=== PATIENT | female | born 1985 | race American Indian/Alaskan Native ===

== ENCOUNTER 2016-10-31 19:58 | Emergency (ER) | payer MEDICAID ==
[2016-10-31 20:28] VITALS: RESP 18; TEMP 99.2
[2016-10-31] MEDS ORDERED: Sodium Chloride 0.9% 1,000 ML IV ONE ×2 (20:37→20:38)
[2016-10-31] MEDS ORDERED: Sodium Chloride 0.9% 1,000 ML ONE ×2 (20:39→22:20)
[2016-10-31 20:51] LABS: BASO % 0.2 % (0.0-2.0); EOS % 0.1 % (0.0-4.0); HEMATOCRIT 41.7 % (34.0-47.0); LYMPH # 0.6 K/uL (1.0-4.3); LYMPH % 4.8 % (20.0-40.0); MEAN CELL VOLUME 86.6 fL (81.0-99.0); MEAN CORPUSCULAR HEMOGLOBIN 28.2 pg (27.0-31.0); MEAN CORPUSCULAR HGB CONC 32.6 g/dL (33.0-37.0); MEAN PLATELET VOLUME 10.3 fL (7.2-11.7); MONO # 0.5 K/uL (0.0-0.8); MONO % 3.7 % (0.0-10.0); PLATELET COUNT 237 K/uL (130-400); RED CELL DISTRIBUTION WIDTH 14.3 % (11.5-14.5); WHITE BLOOD COUNT 12.2 K/uL (4.8-10.8)
[2016-10-31 20:57] LABS: CHLORIDE 100 mmol/L (98-107); SODIUM 137 mmol/L (132-148)
[2016-10-31 21:00] LABS: ALB/GLOB RATIO 1.4 (1.0-2.1); ALKALINE PHOSPHATASE 66 U/L (38-126); AST/SGOT 18 U/L (14-36); BILIRUBIN,TOTAL 1.4 mg/dL (0.2-1.3); BLOOD UREA NITROGEN 12 mg/dL (7-17); CARBON DIOXIDE 24 mmol/L (22-30); GFR AFRICAN-AMERICAN > 60; TOTAL PROTEIN 7.9 g/dL (6.3-8.3)
[2016-10-31 21:01] LABS: ALT/SGPT 18 U/L (9-52); CALCIUM 9.1 mg/dl (8.6-10.4); GLUCOSE,RANDOM 94 mg/dL (65-105)
[2016-10-31 21:37] LABS: NEUTROPHIL 91 % (50-75); TOTAL CELLS COUNTED 100
[2016-10-31 22:11] LABS: RBC URINE 10 /hpf (0-3); URINE BACTERIA RARE (<OCC); URINE BILIRUBIN NEGATIVE (NEGATIVE); URINE BLOOD 1+ (NEGATIVE); URINE COLOR Yellow (YELLOW); URINE GLUCOSE (UA) NORMAL (Normal); URINE KETONE TRACE mg/dL (NEGATIVE); URINE LEUKOCYTE ESTERASE NEG Leu/uL (Negative); URINE PROTEIN NEGATIVE (NEGATIVE); URINE UROBILINOGEN NORMAL mg/dL (0.2-1.0); WBC URINE 2 /hpf (0-5)
--- NOTE | 2016-10-31 22:46 | C.PDOC ---
History Of Present Illness 31 y/o female presents to ED with complaints of nausea, vomiting, and diarrhea since having avalos, eggs and grits for breakfast today. Denies fever, chills, chest pain, SOB, or other complaints. Time Seen by Provider: 10/31/16 20:34 Chief Complaint (Nursing): Abdominal Pain History Per: Patient History/Exam Limitations: no limitations Onset/Duration Of Symptoms: Hrs Current Symptoms Are (Timing): Still Present Associated Symptoms: Nausea, Vomiting, Diarrhea. denies: Fever, Chills, Urinary Symptoms Last Bowel Movement: Today Recent travel outside of the [place]: No Abnormal Vaginal Bleeding: No Past Medical History Reviewed: Historical Data, Nursing Documentation, Vital Signs Vital Signs: Last Vital Signs Temp 99.2 F 10/31/16 20:25 Pulse 88 10/31/16 22:55 Resp 18 10/31/16 22:55 BP 128/82 10/31/16 22:55 Pulse Ox 99 10/31/16 22:55 Surgical History: Appendectomy, Family History: States: Unknown Family Hx - Social History Hx Tobacco Use: No Hx Alcohol Use: Yes Hx Substance Use: No - Immunization History Hx Tetanus Toxoid Vaccination: No Hx Influenza Vaccination: No Hx Pneumococcal Vaccination: No Review Of Systems Except As Marked, All Systems Reviewed And Found Negative. Constitutional: Negative for: Fever, Chills Cardiovascular: Negative for: Chest Pain Respiratory: Negative for: Cough, Shortness of Breath Gastrointestinal: Positive for: Nausea, Vomiting, Diarrhea Genitourinary: Negative for: Dysuria, Frequency, Vaginal Bleeding Skin: Negative for: Rash Physical Exam - Physical Exam Appears: Non-toxic, No Acute Distress Skin: Warm, Dry Head: Atraumatic, Normacephalic Oral Mucosa: Moist Chest: Symmetrical Cardiovascular: Rhythm Regular Respiratory: Normal Breath Sounds, No Rales, No Rhonchi, No Wheezing Gastrointestinal/Abdominal: Bowel Sounds (hyperactive bowel sounds), Soft, No Tenderness, No Distention, No Guarding, No Rebound Back: Normal Inspection, No CVA Tenderness Extremity: Normal ROM, Capillary Refill (< 2 sec. ) Neurological/Psych: Oriented x3, Normal Speech, Normal Cognition ED Course And Treatment - Laboratory Results Result Diagrams: 10/31/16 20:43 10/31/16 20:43 Lab Interpretation: Abnormal (mild leukocytosis) Urine POC: Negative (UA neg.) O2 Sat by Pulse Oximetry: 98 (RA) Pulse Ox Interpretation: Normal - Radiology CXR: Interpreted by Me CXR Interpretation: Yes: No Acute Disease - Other Rad abd x 2 X-Ray: Interpreted by Me (scant stool) Progress Note: Treated with Pepcid, Toradol, Zofran, and IVFs. Labs, obstructive series xr ordered/reviewed. Patient improved on reassessment. Reevaluation Time: 22:46 Reassessment Condition: Improved Medical Decision Making Medical Decision Making: n/v/d after breakfast- ? food poisoning. Disposition Doctor Will See Patient In The: Office Counseled Patient/Family Regarding: Studies Performed, Diagnosis - Disposition Referrals: Non [facility] Provider, [Primary Care Provider] - Disposition: HOME/ ROUTINE Disposition Time: 22:47 Condition: GOOD Additional Instructions: BRAT diet for 2 days: Bananas, white rice, applesauce, toast/bread Drink plenty of fluids/Gatorade Follow-up in our Clinic as needed Instructions: Gastroenteritis (ED), Acute Nausea and Vomiting (ED) - Clinical Impression Clinical Impression: Gastroenteritis - Scribe Statement The provider has reviewed the documentation as recorded by the Allie Jordan Provider Scribe Attestation: All medical record entries made by the Renaldoibalfonso were at my direction and personally dictated by me. I have reviewed the chart and agree that the record accurately reflects my personal performance of the history, physical exam, medical decision making, and the department course for this patient. I have also personally directed, reviewed, and agree with the discharge instructions and disposition.
[2016-10-31 23:14] VITALS: BP 128/82; PULSE 88
[2016-10-31 23:28] VITALS: O2SAT 98
--- NOTE | 2016-11-01 08:49 | RAD ---
Abdomen four views History: Abdominal pain. Comparison: None available. Findings: Lung soler are clear. Heart size is within normal limits. Few mildly distended loops of small bowel seen within the right walt abdomen. Air seen within non dilated loops of colon. Impression: Nonspecific bowel gas pattern with a few mildly distended loops of small bowel seen within the right walt abdomen. If pain persists, consider further evaluation with CT scan of the abdomen and pelvis.
== END 2016-10-31 23:00 | disposition home or self-care (01) ==
LOC: SUPCPDRO 19:58 → C.ER 19:58
DX: K52.9 Noninfective gastroenteritis and colitis, unspecified (principal)
CPT/HCPCS: 74022; 80053; 80324; 80345; 80346; 80349; 80353; 80358; 80361; 81001; 83690; 83992; 84484; 84703; 85025; 96361; 96374; 96375; 99285; J1885; J2405; J7040